=== PATIENT | female | born 1990 | race Caucasian/White ===

== ENCOUNTER → 2021-10-19 | Outpatient (CLI) | payer BC ==
[~2021-10-19] MED LIST: COLACE 100MG C100 MG PO; LEXAPRO20 MG PO; VICTOZA 3-0.6 MG/0.1 INJ; [UNRECOGNIZED DRUG - OTHER] PO
[2021-10-19 11:14] LABS: BUN/CREATININE RATIO 20 (0-10)
== END ==
LOC: OPSV2 09:30
PROVIDERS: Anesthesiology
DX: Z01.812 Encounter for preprocedural laboratory examination (principal)
CPT/HCPCS: 80048

== ENCOUNTER → 2021-10-29 | Day surgery (SDC) | payer BC ==
[~2021-10-29] VITALS: Ht 170.2 cm; Wt 107.5 kg
[~2021-10-29] MED LIST changes: +SAXENDA INJ
== END | disposition home or self-care (01) ==
LOC: OR 08:18
DX: T84.84XA Pain due to internal orthopedic prosthetic devices, implants and grafts, initial encounter (principal); G89.18 Other acute postprocedural pain; S93.431A Sprain of tibiofibular ligament of right ankle, initial encounter; E11.9 Type 2 diabetes mellitus without complications; F41.9 Anxiety disorder, unspecified; K76.0 Fatty (change of) liver, not elsewhere classified; Z20.822 Contact with and (suspected) exposure to COVID-19; Z88.0 Allergy status to penicillin; X58.XXXA Exposure to other specified factors, initial encounter
CPT/HCPCS: 73600; 76000; 82962; 84703; J0690; J1100; J1170; J2001; J2250; J2405; J2704; J3010; J7120